=== PATIENT | female | born 1970 | race Two or more races ===

== ENCOUNTER 2017-09-21 11:17 | Outpatient (CLI) | payer OTHER ==
[~2017-09-21 11:17] MED LIST: NAPROXEN SODIU550 M1 PO
== END 2017-09-21 13:39 | disposition home or self-care (01) ==
LOC: LAB 11:17
DX: E03.8 Other specified hypothyroidism (principal); N95.1 Menopausal and female climacteric states; D50.8 Other iron deficiency anemias

== ENCOUNTER 2017-12-24 08:53 | Outpatient (CLI) | payer OTHER | END 2017-12-24 09:28 | disposition home or self-care (01) | LOC: LAB 08:53 | DX: R53.81 Other malaise (principal); M32.8 Other forms of systemic lupus erythematosus; M25.552 Pain in left hip; M06.09 Rheumatoid arthritis without rheumatoid factor, multiple sites ==

== ENCOUNTER 2017-12-24 10:23 | Outpatient (CLI) | payer OTHER | END 2017-12-24 10:33 | disposition home or self-care, planned readmission (81) | LOC: RAD 10:23 | DX: M25.551 Pain in right hip (principal); M25.552 Pain in left hip ==

== ENCOUNTER 2018-10-08 11:40 | Outpatient (CLI) | payer OTHER | END 2018-10-08 14:16 | disposition home or self-care (01) | LOC: LAB 11:40 | DX: N39.0 Urinary tract infection, site not specified (principal); E78.2 Mixed hyperlipidemia; E55.9 Vitamin D deficiency, unspecified; D50.8 Other iron deficiency anemias; R51 Headache ==

== ENCOUNTER 2019-03-09 08:28 | Outpatient (CLI) | payer OTHER | END 2019-03-09 08:54 | disposition home or self-care (01) | LOC: LAB 08:28 | DX: R05 Cough (principal); D50.8 Other iron deficiency anemias ==

== ENCOUNTER 2019-05-27 12:25 | Outpatient (CLI) | payer OTHER | END 2019-05-27 15:00 | disposition home or self-care (01) | LOC: LAB 12:25 | DX: D50.8 Other iron deficiency anemias (principal) ==

== ENCOUNTER 2021-01-09 10:38 | Outpatient (CLI) | payer OTHER | END 2021-01-09 10:39 | disposition home or self-care (01) | LOC: LAB 10:38 | PROVIDERS: ATTEND Internal Medicine | DX: I10 Essential (primary) hypertension (principal); M54.5 Low back pain; Z01.810 Encounter for preprocedural cardiovascular examination; E03.8 Other specified hypothyroidism; E78.89 Other lipoprotein metabolism disorders; E55.9 Vitamin D deficiency, unspecified; E11.51 Type 2 diabetes mellitus with diabetic peripheral angiopathy without gangrene; Z12.11 Encounter for screening for malignant neoplasm of colon; Z12.31 Encounter for screening mammogram for malignant neoplasm of breast ==

== ENCOUNTER 2021-01-21 14:12 | Outpatient (CLI) | payer OTHER | END 2021-01-21 14:18 | disposition home or self-care (01) | LOC: LAB 14:12 | PROVIDERS: ATTEND Internal Medicine | DX: I10 Essential (primary) hypertension (principal); M54.5 Low back pain; Z01.810 Encounter for preprocedural cardiovascular examination; E03.8 Other specified hypothyroidism; E78.89 Other lipoprotein metabolism disorders; E55.9 Vitamin D deficiency, unspecified; E11.51 Type 2 diabetes mellitus with diabetic peripheral angiopathy without gangrene; Z12.11 Encounter for screening for malignant neoplasm of colon ==

== ENCOUNTER 2022-08-08 13:38 | Outpatient (CLI) | payer OTHER | END 2022-08-08 13:43 | disposition home or self-care (01) | LOC: LAB 13:38 | PROVIDERS: ATTEND General Practice | DX: E03.8 Other specified hypothyroidism (principal) ==

== ENCOUNTER 2022-09-15 11:27 | Outpatient (CLI) | payer OTHER | END 2022-09-15 11:40 | disposition home or self-care (01) | LOC: LAB 11:27 | PROVIDERS: ATTEND General Practice | DX: E03.9 Hypothyroidism, unspecified (principal); Z12.11 Encounter for screening for malignant neoplasm of colon; E55.9 Vitamin D deficiency, unspecified; N39.0 Urinary tract infection, site not specified; E11.9 Type 2 diabetes mellitus without complications; I11.9 Hypertensive heart disease without heart failure; M25.50 Pain in unspecified joint ==

== ENCOUNTER → 2022-09-17 09:40 | Outpatient (CLI) | payer OTHER | END | disposition home or self-care (01) | LOC: LAB 09:40 | PROVIDERS: ATTEND General Practice | DX: E03.9 Hypothyroidism, unspecified (principal); Z12.11 Encounter for screening for malignant neoplasm of colon; E55.9 Vitamin D deficiency, unspecified; N39.0 Urinary tract infection, site not specified; E11.9 Type 2 diabetes mellitus without complications; I11.9 Hypertensive heart disease without heart failure ==

== ENCOUNTER 2022-10-05 11:28 | Outpatient (CLI) | payer OTHER | END 2022-10-05 11:36 | disposition home or self-care (01) | LOC: SONOGRAMA 11:28 | PROVIDERS: ATTEND General Practice | DX: E04.9 Nontoxic goiter, unspecified (principal) ==

== ENCOUNTER 2022-10-19 10:38 | Outpatient (CLI) | payer OTHER | END 2022-10-19 10:42 | disposition home or self-care (01) | LOC: SONOGRAMA 10:38 | PROVIDERS: ATTEND General Practice | DX: R10.11 Right upper quadrant pain (principal) ==

== ENCOUNTER 2022-10-19 11:37 | Outpatient (CLI) | payer OTHER | END 2022-10-19 11:42 | disposition home or self-care (01) | LOC: LAB 11:37 | PROVIDERS: ATTEND General Practice | DX: R80.9 Proteinuria, unspecified (principal) ==

== ENCOUNTER → 2022-12-26 11:48 | Outpatient (CLI) | payer OTHER | END | disposition home or self-care (01) | LOC: LAB 11:48 | PROVIDERS: ATTEND Internal Medicine Hematology & Oncology | DX: D80.8 Other immunodeficiencies with predominantly antibody defects (principal); D80.4 Selective deficiency of immunoglobulin M [IgM]; M32.8 Other forms of systemic lupus erythematosus; I77.6 Arteritis, unspecified; M05.80 Other rheumatoid arthritis with rheumatoid factor of unspecified site; M33.29 Polymyositis with other organ involvement; D55.8 Other anemias due to enzyme disorders ==

== ENCOUNTER 2022-12-29 12:45 | Outpatient (CLI) | payer OTHER | END 2022-12-29 12:46 | disposition home or self-care (01) | LOC: LAB 12:45 | PROVIDERS: ATTEND Internal Medicine Hematology & Oncology | DX: N06.0 Isolated proteinuria with minor glomerular abnormality (principal) ==

== ENCOUNTER → 2023-08-07 12:45 | Outpatient (CLI) | payer OTHER ==
[2023-08-07 14:21] LABS: URINE APPEARANCE Cloudy; URINE BILIRRUBIN Negative (NEGATIVE); URINE BLOOD Negative; URINE COLOR Yellow; URINE GLUCOSE Negative (NEGATIVE); URINE LEUKOCYTE Small; URINE NITRATE Negative; URINE PROTEIN Negative (NEGATIVE); URINE UROBILINOGEN 0.2 E.U./dl
[2023-08-07 14:26] LABS: URINE BACTERIA 777.4 uL (0.0-1933); URINE EPITHELIAL CELLS 79.9 uL (0.0-38.8); URINE WBC 73.1 uL (0.0-23.2)
[2023-08-07 14:29] LABS: HEMATOCRIT 40.1 % (36.0-45.00); HEMOGLOBIN 13.4 g/dL (12.0-15.00); MEAN CELL VOLUME 89.8 fL (80.00-100.00); MEAN CORPUSCULAR HEMOGLOBIN 29.9 pg (27.00-32.0); MEAN CORPUSCULAR HGB CONC 33.4 g/dl (32.0-36.0); PLATELET COUNT 143 K/uL (150-450); RED BLOOD COUNT 4.47 M/uL (4.00-6.00); RED CELL DISTRIBUTION WIDTH 13.9 % (11.5-14.5)
[2023-08-07 14:34] LABS: ob NEGATIVE (NEGATIVE)
[2023-08-07 15:10] LABS: URINE MUCUS SCANT
[2023-08-07 15:36] LABS: ALBUMIN 4.1 gm/dL (3.4-5.0); BILIRUBIN TOTAL 1.27 mg/dL (0.3-1.2); CALCIUM 9.4 mg/dL (8.5-10.1); CHOL HDL RATIO 2.1 (0-5.0); CREATININE SERUM 0.59 mg/dL (0.55-1.02); GFR 106.22; GLOBULINA 3.1 G/DL (2.4-3.5); POTASSIUM 3.87 mEq/L (3.5-5.1); TOTAL PROTEIN 7.2 gm/dL (6.4-8.2); TSH 2.02 uIU/mL (0.358-3.74)
== END | disposition home or self-care (01) ==
LOC: LAB 12:45
DX: Z00.01 Encounter for general adult medical examination with abnormal findings (principal); N95.1 Menopausal and female climacteric states; Z12.11 Encounter for screening for malignant neoplasm of colon; Z00.8 Encounter for other general examination; Z13.89 Encounter for screening for other disorder; Z13.220 Encounter for screening for lipoid disorders; Z13.0 Encounter for screening for diseases of the blood and blood-forming organs and certain disorders involving the immune mechanism; Z13.29 Encounter for screening for other suspected endocrine disorder

== ENCOUNTER 2024-11-26 11:28 | Outpatient (CLI) | payer OTHER ==
[2024-11-26 13:04] LABS: BASO % 0.6 % (0.1-1.2); EOS # 0.07 (0.04-0.54); EOS % 1.4 % (0.7-7.0); LYMPH # 0.95 (1.18-3.74); LYMPH % 19.5 % (19.3-53.1); MEAN PLATELET VOLUME 13.50 fl (9.4-12.4); MONO # 0.29 (0.24-0.82); MONO % 5.9 % (4.7-12.5); NEUT # 3.53 (1.56-6.13); NEUT % 72.4 % (34.0-71.1); RED CELL DISTRIBUTION WIDTH 12.2 % (11.6-14.4)
[2024-11-26 13:41] LABS: ALT/SGPT 26 U/L (12-78); AST/SGOT 14 U/L (15-37); BILIRUBIN TOTAL 1.18 mg/dL (0.3-1.2); BUN CREA RATIO 23 (7.0-25.0); CREATININE SERUM 0.65 mg/dL (0.55-1.02); GFR 94.63; GLOBULINA 2.9 G/DL (2.4-3.5); GLUCOSE FASTING 82 mg/dL (65-100); LDH 202 U/L (84-246); OSMOLALITY SERUM 285 MOSM/KG (275-295)
[2024-11-28 13:08] LABS: CYCLIC CITRULLINE PEPTIDE 11 units (0-19)
== END 2024-11-26 11:34 | disposition home or self-care (01) ==
LOC: LAB 11:28
PROVIDERS: ATTEND Internal Medicine Hematology & Oncology
DX: D70.8 Other neutropenia (principal); R70.0 Elevated erythrocyte sedimentation rate; R74.01 Elevation of levels of liver transaminase levels; I77.6 Arteritis, unspecified; M32.8 Other forms of systemic lupus erythematosus; M05.80 Other rheumatoid arthritis with rheumatoid factor of unspecified site